=== PATIENT | female | born 1950 | race Asian ===

== ENCOUNTER 2021-03-01 12:24 | Outpatient (CLI) | payer MEDICARE, MEDICAID | END 2021-03-01 12:25 | disposition home or self-care (01) | LOC: CSHMAMMO 12:24 | PROVIDERS: ATTEND Internal Medicine | DX: Z12.31 Encounter for screening mammogram for malignant neoplasm of breast (principal); Z13.820 Encounter for screening for osteoporosis; M85.89 Other specified disorders of bone density and structure, multiple sites | CPT/HCPCS: 77063; 77067; 77080 ==

== ENCOUNTER 2021-12-15 07:31 | Outpatient (CLI) | payer MEDICARE, MEDICAID | END 2021-12-15 07:32 | disposition home or self-care (01) | LOC: CSHULT 07:31 | PROVIDERS: ATTEND Internal Medicine Gastroenterology | DX: R10.13 Epigastric pain (principal); Z86.010 Personal history of colon polyps | CPT/HCPCS: 76700 ==